=== PATIENT | male | born 1955 ===

== ENCOUNTER → 2018-07-29 | Outpatient (CLI) | payer OTHER ==
[2017-09-28 14:39] VITALS: BMI 26.0
[~2018-07-29] MED LIST: ASP300S PO; ASPI-757 PO; DIAZ-308 PO; DOCU-202 PO; HYDR-385 PO; IBUP-1671 PO; IBUP800T37 PO; KET10 PO; MOM PO; NAPR220C12 PO; OMEG1CAP39 PO; OXYC-865 PO; PER PO; POLY17PO25 PO; PRED20TA6 PO
--- NOTE | 2018-07-29 13:16 | RADIOLOGY IMAGING REPORT ---
FACILITY: [facility] PATIENT NAME: Jairo Gray : 1955 MR: [id number] V: [id number] EXAM DATE: ORDERING PHYSICIAN: SOPHIA GARRETT TECHNOLOGIST: [facility] Patient: Jairo Gray : 1955 Visit/Account:[id number] Date of Sevice: 07/29/2018 Exam type: ORBITS FOREIGN BODY 1 VIEW History: Pre-MRI screening Comparison: None. Findings: No radiopaque metallic foreign bodies project over the orbits IMPRESSION: 1. No radial opaque metallic foreign bodies project over the orbits Report Dictated By: Kisha Juarez MD at 07/29/2018 1:11 PM Report E-Signed By: Kisha Juarez MD at 07/29/2018 1:12 PM WSN:[email or web address]
--- NOTE | 2018-07-29 14:08 | RADIOLOGY IMAGING REPORT ---
[facility] PATIENT NAME: Jairo Gray : 1955 MR: [id number] V: [id number] EXAM DATE: [id number] ORDERING PHYSICIAN: SOPHIA GARRETT TECHNOLOGIST: Location: [facility] Patient: Jairo Gray : 1955 Visit/Account:[id number] Date of Sevice: 07/29/2018 EXAMINATION: MRI Lumbar spine without intravenous contrast HISTORY: Left hip pain. COMPARISON: CT abdomen and pelvis dated 09/27/2017. TECHNIQUE: Multi-planar, multi-sequence lumbar spine MRI was performed without intravenous contrast administration. FINDINGS: Alignment: Minimal retrolisthesis of L2 over L3. Vertebral marrow signal: Mild discogenic bone marrow edema at L1-L2 and L2-L3. Left L5 pars defect. Distal thoracic cord: Negative. Conus: negative, terminates at T12-L1 Cauda equina: Negative. Paravertebral soft tissues: Negative. Visualized abdominal and pelvic structures: Negative. Disc Spaces: Lower thoracic spine: Mild degenerative changes without stenosis. L1-2: Moderate disc height loss with circumferential disc bulge, anterior disc osteophytes, and mild facet hypertrophy. No significant spinal canal stenosis. Mild bilateral neural foraminal stenosis. L2-3: Minimal retrolisthesis. Mild disc height loss with circumferential disc bulge and facet hypert rophy. No significant spinal canal stenosis. Mild bilateral neural foraminal stenosis. L3-4: Minimal disc bulge with right foraminal annular fissure. Mild facet hypertrophy. No significa nt spinal canal stenosis. Mild bilateral neural foraminal stenosis. L4-5: Mild disc bulge and facet hypertrophy. Mild right lateral recess stenosis. Mild bilateral yeison ral foraminal stenosis, right worse than left. L5-S1: Mild disc height loss with circumferential disc bulge and facet hypertrophy. No significant s arnold canal stenosis. Mild right and moderate left neural foraminal stenosis. IMPRESSION: Multilevel degenerative disc disease and facet hypertrophy with minimal retrolisthesis of L2 over L3. Left L5 pars defect with no associated alignment abnormality. Report Dictated By: Samir Oliva MD at 07/29/2018 1:57 PM Report E-Signed By: Samir Oliva MD at 07/29/2018 2:04 PM WSN:[id number]
--- NOTE | 2018-07-29 14:37 | RADIOLOGY IMAGING REPORT ---
FACILITY: [facility] [place] PATIENT NAME: Jairo Gray : 1955 MR: [id number] V: [id number] EXAM DATE: ORDERING PHYSICIAN: SOPHIA GARRETT TECHNOLOGIST: Location: [facility] [place] Patient: Jairo Gray : 1955 Visit/Account:[id number] Date of Sevice: 07/29/2018 Exam type: LUMBAR SPINE 2 OR 3 VIEW History: Left sciatica, low back pain Comparison: None. Findings: There are five nonrib-bearing lumbar-type vertebral bodies present. There is no evidence of acute fr actures. There is a 2 mm retrolisthesis of L2 with respect L3. There is mild disc space narrowing a t L2-3 with small anterior osteophytes. There is moderate disc space narrowing at L1-2 with sclerosi s of the adjacent endplates and anterior osteophytes. Mild disc space narrowing is noted in the visu alized portion the lower thoracic spine. IMPRESSION: 1. Spondylotic changes lumbar spine as detailed above Report Dictated By: Kisha Juarez MD at 07/29/2018 2:30 PM Report E-Signed By: Kisha Juarez MD at 07/29/2018 2:31 PM WSN:[email or web address]
== END ==
LOC: MRI 00:49
PROVIDERS: ATTEND Family Medicine
DX: M47.896 Other spondylosis, lumbar region (principal); M51.36 Other intervertebral disc degeneration, lumbar region
CPT/HCPCS: 70030; 72100; 72148

== ENCOUNTER 2018-08-26 07:25 | Emergency (ER) | payer OTHER ==
[2017-09-28 14:39] VITALS: Wt 74.8 kg
--- NOTE | 2018-08-26 08:20 | ER Report ---
History and Physical Time Seen By MD: 08:19 Hx. of Stated Complaint: left finger thumb lips tongue numbness, with speech slurring HPI/ROS 63-year-old male with no known medical problems presented to the emergency department complaining of numbness and tingling in the left side of his face and his left hand that started approximately 30 minutes prior to coming to the emergency department and has since self resolved. is an or and works in the PACU. She notes that she noticed symptoms today as well. She also notes that his blood pressure has been elevated for the past 2 weeks. He normally does not have high blood pressure, and for the past 2 weeks his systolics have been anywhere from the 150s to 200. He has been battling left low back and hip pain. He recently had a steroid injection at [facility] for his diagnosis of sciatica. He denies a headache currently. He states that he had a headache shortly after the spinal manipulation, but the headache only lasted 3 hours. As far as his symptoms today he does not complain of any other focal neurologic symptoms other than the ones described. No recent trauma. No vision changes. No chest pain. Remainder of the 14 system rev: Yes Allergies: Coded Allergies: sumatriptan (Verified Allergy, Intermediate, THROAT FEELS LIKE ITS CLOSING, 08/26/18) hydromorphone (Verified Allergy, Unknown, 08/26/18) Home Meds Active Scripts Lisinopril (LISINOPRIL) 10 Mg Tablet, 10 MG PO QDAY for 14 Days, #14 TAB Prov:HODA OJEDA MD 08/26/18 Reported Medications Ibuprofen (MOTRIN IB) 200 Mg Tablet, 1 TAB PO QDAY 10/14/17 Reviewed Nurses Notes: Yes Old Medical Records Reviewed: Yes Hx Smoking: Yes (SMOKED FOR 6 YEARS) Smoking Status: Former Smoker Exposure to Second Hand Smoke?: No Hx Substance Use Disorder: No Hx Alcohol Use: Yes (sober) Constitutional Vital Sign - Last 24 Hours 08/26/18 08/26/18 08/26/18 08/26/18 07:25 07:28 07:30 07:31 Temp 98.1 Pulse 74 85 Resp 14 B/P (MAP) 177/104 (128) 151/109 (123) 151/109 Pulse Ox 96 O2 Delivery Room Air 08/26/18 08/26/18 08/26/1818 07:55 08:00 08:25 08:30 Pulse 75 74 Resp 12 24 B/P (MAP) 131/102 (112) 141/100 (114) Pulse Ox 93 96 O2 Delivery Room Air Room Air 08/26/18 08/26/18 08/26/18 08/26/18 08:55 09:00 09:05 09:30 Pulse 82 71 Resp 10 B/P (MAP) 158/104 (122) 154/106 (122) Pulse Ox 92 O2 Delivery Room Air 08/26/18 08/26/18 08/26/18 08/26/18 09:35 10:00 10:05 10:10 Pulse 75 67 65 Resp 16 10 11 B/P (MAP) 144/107 (119) Pulse Ox 96 96 96 O2 Delivery Room Air Room Air Room Air 08/26/18 08/26/18 08/26/18 08/26/18 11:38 11:40 11:45 12:15 Pulse 76 69 71 Resp 19 20 19 B/P (MAP) 132/101 (111) Pulse Ox 96 96 97 O2 Delivery Room Air Room Air Room Air 08/26/18 08/26/18 12:30 12:45 Pulse 69 Resp 42 B/P (MAP) 156/103 (120) Pulse Ox 96 O2 Delivery Room Air Physical Exam General Appearance: The patient is alert, has no immediate need for airway protection and no signs of toxicity. Eyes: Pupils equal and round no pallor or injection. ENT, Mouth: Mucous membranes are moist. Respiratory: There are no retractions, lungs are clear to auscultation. Cardiovascular: Regular rate and rhythm. Gastrointestinal: Abdomen is soft and non tender, no masses, bowel sounds normal. Neurological: strength sensation grossly in tact, CN II-XII in tact, normal gait. Skin: Warm and dry, no rashes. Musculoskeletal: TTP at the left buttocks c/w sciatica Neck: supple non tender. Extremities are nontender, nonswollen and have full range of motion. DIFFERENTIAL DIAGNOSIS: After history and physical exam differential diagnosis was considered for TIA, CVA, TX, trauma Medical Decision Making Data Points Result Diagram: 08/26/18 0733 08/26/18 0733 Laboratory Hematology Test 08/26/18 07:33 Red Blood Count 5.83 M/uL (4.00-5.60) Mean Corpuscular Volume 94.3 fL (80.0-96.0) Mean Corpuscular Hemoglobin 31.6 pg (26.0-33.0) Mean Corpuscular Hemoglobin Concent 33.6 g/dL (32.0-36.0) Red Cell Distribution Width 14.0 % (11.5-14.5) Mean Platelet Volume 8.7 fL (7.2-11.1) Neutrophils (%) (Auto) 66.7 % (39.4-72.5) Lymphocytes (%) (Auto) 23.4 % (17.6-49.6) Monocytes (%) (Auto) 8.0 % (4.1-12.4) Eosinophils (%) (Auto) 1.2 % (0.4-6.7) Basophils (%) (Auto) 0.7 % (0.3-1.4) Nucleated RBC Relative Count (auto) 0.2 /100WBC Neutrophils # (Auto) 5.6 K/uL (2.0-7.4) Lymphocytes # (Auto) 2.0 K/uL (1.3-3.6) Monocytes # (Auto) 0.7 K/uL (0.3-1.0) Eosinophils # (Auto) 0.1 K/uL (0.0-0.5) Basophils # (Auto) 0.1 K/uL (0.0-0.1) Nucleated RBC Absolute Count (auto) 0.02 K/uL Peripheral Blood Smear No Y/N Prothrombin Time 13.0 seconds (12.0-14.4) Prothromb Time International Ratio 0.99 Activated Partial Thromboplast Time 33 seconds (23-35) Sodium Level 141 mmol/L (137-145) Potassium Level 3.7 mmol/L (3.5-5.0) Chloride Level 101 mmol/L (98-107) Carbon Dioxide Level 27 mmol/L (22-30) Blood Urea Nitrogen 24 mg/dl (9-21) Creatinine 1.20 mg/dl (0.66-1.25) Glomerular Filtration Rate Calc > 60.0 Random Glucose 95 mg/dl (75-110) Calcium Level 9.4 mg/dl (8.4-10.2) Total Bilirubin 0.8 mg/dl (0.2-1.3) Aspartate Amino Transf (AST/SGOT) 29 U/L (0-35) Alanine Aminotransferase (ALT/SGPT) 39 U/L (0-56) Alkaline Phosphatase 44 U/L (0-126) Troponin I 0.019 ng/ml Total Protein 7.9 g/dl (6.3-8.2) Albumin 4.6 g/dl (3.5-5.0) Chemistry Test 08/26/18 07:33 White Blood Count 8.4 k/uL (4.5-11.0) Red Blood Count 5.83 M/uL (4.00-5.60) Hemoglobin 18.4 g/dL (14.0-18.0) Hematocrit 55.0 % (42.0-52.0) Mean Corpuscular Volume 94.3 fL (80.0-96.0) Mean Corpuscular Hemoglobin 31.6 pg (26.0-33.0) Mean Corpuscular Hemoglobin Concent 33.6 g/dL (32.0-36.0) Red Cell Distribution Width 14.0 % (11.5-14.5) Platelet Count 173 K/uL (150-450) Mean Platelet Volume 8.7 fL (7.2-11.1) Neutrophils (%) (Auto) 66.7 % (39.4-72.5) Lymphocytes (%) (Auto) 23.4 % (17.6-49.6) Monocytes (%) (Auto) 8.0 % (4.1-12.4) Eosinophils (%) (Auto) 1.2 % (0.4-6.7) Basophils (%) (Auto) 0.7 % (0.3-1.4) Nucleated RBC Relative Count (auto) 0.2 /100WBC Neutrophils # (Auto) 5.6 K/uL (2.0-7.4) Lymphocytes # (Auto) 2.0 K/uL (1.3-3.6) Monocytes # (Auto) 0.7 K/uL (0.3-1.0) Eosinophils # (Auto) 0.1 K/uL (0.0-0.5) Basophils # (Auto) 0.1 K/uL (0.0-0.1) Nucleated RBC Absolute Count (auto) 0.02 K/uL Peripheral Blood Smear No Y/N Prothrombin Time 13.0 seconds (12.0-14.4) Prothromb Time International Ratio 0.99 Activated Partial Thromboplast Time 33 seconds (23-35) Glomerular Filtration Rate Calc > 60.0 Calcium Level 9.4 mg/dl (8.4-10.2) Total Bilirubin 0.8 mg/dl (0.2-1.3) Aspartate Amino Transf (AST/SGOT) 29 U/L (0-35) Alanine Aminotransferase (ALT/SGPT) 39 U/L (0-56) Alkaline Phosphatase 44 U/L (0-126) Troponin I 0.019 ng/ml Total Protein 7.9 g/dl (6.3-8.2) Albumin 4.6 g/dl (3.5-5.0) Coagulation Test 08/26/18 07:33 Prothrombin Time 13.0 seconds Prothromb Time International Ratio 0.99 Activated Partial Thromboplast Time 33 seconds ED Course/Re-evaluation ED Course Symptoms are consistent with a TIA with all symptoms self resolved in approximately [address] head, MRI/MRA of the head, and MRA of the neck al l show no acute findings to explain symptoms. Could be also due to his HTN?? I gave him Lisinsopril to start for his HTN, and he will follow up with his PCM tomorrow. I will have him start taking a baby ASA daily. Decision to Disposition Date: Aug 26, 2018 Decision to Disposition Time: 14:35 Depart Departure Latest Vital Signs Vital Signs Date Time Temp Pulse Resp B/P (MAP) Pulse Ox O2 Delivery O2 Flow Rate FiO2 08/26/18 12:45 69 42 96 Room Air 08/26/18 12:30 156/103 (120) 08/26/18 07:31 98.1 Impression: Primary Impression: TIA (transient ischemic attack) Additional Impression: Elevated BP without diagnosis of hypertension Condition: Improved Disposition: HOME OR SELF-CARE Referrals: SOPHIA GARRETT DO (PCP) New Scripts Lisinopril (LISINOPRIL) 10 Mg Tablet 10 MG PO QDAY for 14 Days, #14 TAB Prov: HODA OJEDA MD 08/26/18 Patient Instructions: Transient Ischemic Attack (ED) Additional Instructions: Start taking 81 mg Aspirin daily Problem Qualifiers HODA OJEDA MD Aug 26, 2018 08:19
[2018-08-26 08:38] LABS: PLATELET COUNT, AUTOMATED 173 K/uL (150-450)
[2018-08-26 08:50] LABS: INR 0.99
--- NOTE | 2018-08-26 09:10 | EKG ---
FACILITY: [facility] PATIENT NAME: ONI AMATO : [id number] MR: [id number] V: [id number] EXAM DATE: ORDERING PHYSICIAN: HODA OJEDA TECHNOLOGIST: Test Reason : TIA Blood Pressure : / mmHG Vent. Rate : 070 BPM Atrial Rate : 070 BPM P-R Int : 080 ms QRS Dur : 092 ms QT Int : 382 ms P-R-T Axes : 000 021 069 degrees QTc Int : 412 ms Sinus rhythm with short WI Otherwise normal ECG When compared with ECG of 27-SEP-2017 18:06, premature ventricular complexes are no longer present WI interval has decreased Confirmed by ARUNA GUERRERO ([id number]) on 08/26/2018 6:07:41 PM Referred By: Confirmed By:ARUNA GUERRERO
--- NOTE | 2018-08-26 09:36 | RADIOLOGY IMAGING REPORT ---
[place] [facility] [place] NAME: Jairo Gray : 1955 MR: [id number] V: [id number] EXAM DATE: ORDERING PHYSICIAN: HODA OJEDA TECHNOLOGIST: Location: [facility] Patient: Jairo Gray : 1955 Visit/Account:[id number] Date of Sevice: 08/26/2018 EXAMINATION: Head CT without intravenous contrast HISTORY: Numbness tingling left arm and left face TECHNIQUE: Contiguous axial images were obtained from the skull base to the vertex without intraven ous contrast. Sagittal and coronal reformatted images are also submitted. Dose Lowering Technique One of the following dose optimization techniques was utilized in the performance of this exam: Autom ated exposure control; adjustment of the mA and/or kV according to the patient's size; or use of an i terative reconstruction technique. Specific details can be referenced in the facility's radiology C T exam operational policy. COMPARISON: None. FINDINGS: Brain volume: Mild diffuse cortical atrophy not out of proportion for patient's age Ventricles: Normal. Acute ischemic changes: None. Hemorrhage: None. Masses / edema: None. Suero-white: Negative. White matter: In the left frontal lobe white matter at the suero-white matter junction, there is a 5. 4 x 3.8 x 5 mm coarse calcifications with several small tiny peripheral calcifications. There is no significant mass effect. There is a subtle hypodensity in the adjacent left frontal white matter. Vessels: There are calcifications in the carotid siphons and vertebral arteries bilaterally Extra-axial: Negative. Calvarium / scalp: Negative. Skull base / visualized face: Negative. Visualized sinuses / orbits: Negative. IMPRESSION: There is mild diffuse cortical atrophy not out of proportion for patient's age In the left frontal white matter at the suero-white matter junction there is a 5.4 x 3.8 x 5 mm coarse calcification with several small tiny peripheral calcifications. There is subtle hypodensity in the adjacent left frontal white matter although no significant mass effect. Diagnostic considerations w ould include prior trauma, prior granulomatous infection, metabolic calcifications or less likely roel plastic calcification such as an oligodendroglioma due to the possibility of surrounding edema. No evidence of acute intracranial hemorrhage Calcifications in the carotid siphons and vertebral arteries bilaterally Report Dictated By: Kisha Juarez MD at 08/26/2018 9:15 AM Report E-Signed By: Kisha Juarez MD at 08/26/2018 9:31 AM WSN:[email or web address]
[2018-08-26] MEDS ORDERED: GADOBENATE 529MG/1ML 15ML VIAL IVP ONE (10:08)
[2018-08-26] MEDS ORDERED: NS(*) 0.9% 50 ML BAG 50 ML ONE (10:09)
[2018-08-26] MEDS ORDERED: DIAZEPAM 5 MG TAB PO ONE (10:10)
--- NOTE | 2018-08-26 12:06 | RADIOLOGY IMAGING REPORT ---
FACILITY: [facility] [place] PATIENT NAME: Jairo Gray : 1955 MR: [id number] V: [id number] EXAM DATE: ORDERING PHYSICIAN: HODA OJEDA TECHNOLOGIST: Location: [facility] [place] Patient: Jairo Gray : 1955 Visit/Account:[id number] Date of Sevice: 08/26/2018 Examination: MR brain without contrast History: TIA Comparison: Head CT August 26, 2018 Technique: Multiplane MR imaging was performed through the brain without contrast. Findings: Diffusion: None Ventricles: Normal Midline shift: None Extraaxial fluid: None. Midline craniocervical structures: Normal Parenchyma: Small focal left frontal lobe parenchymal calcification is present and better visualized by CT. Minimal white matter high signal adjacent to this finding, axial flair image 19 and 20. 1.6 cm transverse dimension curvilinear left inferior cerebellar cortical high signal, axial flair im age 6. Less than 10 scattered punctate white matter high signal foci. Vascular flow voids: Normal Orbits and paranasal sinuses: Normal. Other: Small bilateral mastoid effusions. Impression: 1. No acute intracranial abnormality. 2. 1.6 cm curvilinear left inferior cerebellar high signal without diffusion restriction is favored t o wrepresent the residua of a distant infarct. 3. Small left frontal lobe parenchymal calcification with minimal adjacent parenchymal high signal. T his calcification is better visualized on the comparison head CT. This finding is favored to represent the residua of prior ischemia/inflammation, hemorrhage or infect ion such as prior neurocysticercosis infection. This could alternatively represent a benign cavernous malformation however this is felt less likely given signal characteristics on MR. 4. Otherwise unremarkable brain MR. Report Dictated By: Taqueria Renteria MD at 08/26/2018 11:55 AM Report E-Signed By: Taqueria Renteria MD at 08/26/2018 12:02 PM WSN:[email or web address]
--- NOTE | 2018-08-26 12:11 | RADIOLOGY IMAGING REPORT ---
FACILITY: [facility] PATIENT NAME: Jairo Gray : 1955 MR: [id number] V: [id number] EXAM DATE: ORDERING PHYSICIAN: HODA OJEDA TECHNOLOGIST: Location: [facility] [place] Patient: Jairo Gray : 1955 Visit/Account:[id number] Date of Sevice: 08/26/2018 EXAMINATION: Brain MR angiogram HISTORY: TIA COMPARISON: None. TECHNIQUE: 6L-xydp-hy-flight angiography was performed through the brain with 3D reformations. FINDINGS: Internal carotids: Less intense flow related signal within the inferior basilar artery and left great er than right intracranial vertebral arteries is favored to be artifactual. Anterior/Posterior communicating arteries: Normal. Anterior cerebral arteries: Normal. Middle cerebral arteries: Normal. Posterior cerebral arteries: Normal. Vertebrobasilar: Normal. PICA / AICA / SCA / REAL ESTATE COORDINATOR: Normal. Non-angiographic Findings: None significant. IMPRESSION: Normal brain MR angiogram. Report Dictated By: Taqueria Renteria MD at 08/26/2018 11:46 AM Report E-Signed By: Taqueria Renteria MD at 08/26/2018 12:07 PM WSN:[email or web address]
--- NOTE | 2018-08-26 12:12 | RADIOLOGY IMAGING REPORT ---
FACILITY: [facility] - [place] [place] PATIENT NAME: Jairo Gray : 1955 MR: [id number] V: [id number] EXAM DATE: ORDERING PHYSICIAN: HODA OJEDA TECHNOLOGIST: Location: [facility] [place] Patient: Jairo Gray : 1955 Visit/Account:[id number] Date of Sevice: 08/26/2018 EXAMINATION: MRA of the neck without IV contrast MRA of the neck with IV contrast HISTORY: TIA COMPARISON: None TECHNIQUE: Pre and postcontrast neck MR angiographic acquisitions obtained with 3-D reformations. 15 mL gadobenate injected. Stenosis of the internal carotid arteries calculated using NASCET criteria. FINDINGS: Angiographic Findings: Aortic arch / great vessels: Conventional anatomy, normal. Right carotid vasculature: Normal. Left carotid vasculature: Normal. Vertebral arteries: Equivocal mild left vertebral artery origin stenosis, otherwise unremarkable. Visible intracranial vasculature: Normal. Non-angiographic Findings: None significant. IMPRESSION: 1. Equivocal mild left vertebral artery origin stenosis. 2. Otherwise normal neck arterial vasculature. Report Dictated By: Taqueria Renteria MD at 08/26/2018 12:02 PM Report E-Signed By: Taqueria Renteria MD at 08/26/2018 12:06 PM WSN:[email or web address]
[2018-08-26] MEDS ORDERED: KETOROLAC 30 MG/ML VIAL IVP ONE (14:35)
[2018-08-26] MEDS ORDERED: LISINOPRIL 10 MG TAB PO ONE (14:35)
[2018-08-26] MEDS ORDERED: LISI-362 PO (14:39)
[2018-08-26 15:01] VITALS: BP 157/119
== END 2018-08-26 15:11 | disposition home or self-care (01) ==
LOC: ER 08:21
DX: G45.9 Transient cerebral ischemic attack, unspecified (principal); R03.0 Elevated blood-pressure reading, without diagnosis of hypertension
CPT/HCPCS: 70450; 70544; 70549; 70551; 84153; 84443; 84484; 85025; 85610; 85730; 93005; 96374; 99285; A9577; J1885; J7050; 82040; 82247; 82310; 82374; 82435; 82465; 82565; 82947; 83718; 84075; 84132; 84155; 84295; 84450; 84460; 84478; 84520

== ENCOUNTER 2018-12-10 01:20 | Day surgery (SDC) | payer OTHER ==
[2017-09-28 14:39] VITALS: Ht 172.7 cm; Wt 73.0 kg
[~2018-12-10] VITALS: Ht 172.7 cm; Wt 73.0 kg
[~2018-12-10 01:20] MED LIST changes: +LISI-355 PO; +LISI-362 PO; +TRAM100T8 PO
[2018-12-10 13:33] VITALS: BP 134/91
[2018-12-10] MEDS ORDERED: OPHTHALMIC PROCEDURE 1 OS PRN (14:30)
[2018-12-10] MEDS ORDERED: OPHTHALMIC PROCEDURE 2 OS PRN ×2 (14:30)
[2018-12-10] MEDS ORDERED: LIDOCAINE/SOD BICARB 8.4% SYR ID ONE (14:50)
[2018-12-10] MEDS ORDERED: NORMOSOL R SOLN(*) 1000 ML BAG 1,000 ML IV PRN (14:50)
[2018-12-10] MEDS ORDERED: acetaZOLAMIDE 500 MG CAPCR PO ONE (15:30)
[2018-12-10 15:34] VITALS: BP 133/92
--- NOTE | 2018-12-10 16:48 | FOSTER LEFT EYE CATARACT ---
EVENT DATE: December 10, 2018 SURGEON: Be Dill MD ANESTHESIOLOGIST: Brian Husain MD ANESTHESIA: MAC PREOPERATIVE DIAGNOSIS Cataract, left eye. POSTOPERATIVE DIAGNOSIS Cataract, left eye. PROCEDURE Phacoemulsification of cataractous lens with implantation of an intraocular lens, left eye. DESCRIPTION OF PROCEDURE The risks, benefits, and alternatives were carefully discussed with the patient, and preoperative consent was obtained. The patient was brought to the operating room after receiving topical anesthetic. The patient was prepped and draped using sterile technique in the usual manner. A stab incision was made, and the chamber was inflated with preservative-free lidocaine. DuoVisc was injected to inflate the chamber. A 2.2 mm blade was used to enter the anterior chamber. Utrata forceps were used to tear a circular capsulorrhexis. BSS was used to hydrodissect the nucleus. Phaco tip was introduced, and the nucleus was chopped into four quadrants. Each quadrant was removed. The I/A tip was used to remove the cortex. The bag was inflated with ProVisc. The intraocular lens was injected into the capsular bag. The I/A tip was used to remove the ProVisc. The wound was found to be watertight. Vigamox, Nevanac, and Maxitrol ointment were placed in the patient's eye. The patient's eye was patched, and the patient was taken to the recovery room in stable condition. The patient was examined in the recovery room and found to be stable prior to release from the hospital. ANGIE
== END 2018-12-10 15:55 | disposition home or self-care (01) ==
LOC: OR 01:20
PROVIDERS: ATTEND Ophthalmology
DX: H25.813 Combined forms of age-related cataract, bilateral (principal)
CPT/HCPCS: 66982; V2632

== ENCOUNTER → 2019-03-30 | Outpatient (CLI) | payer OTHER ==
[2017-09-28 14:39] VITALS: BMI 26.0
[2019-03-30 12:06] LABS: PLATELET COUNT, AUTOMATED 255 K/uL (150-450)
== END ==
LOC: LAB 11:39
DX: M16.11 Unilateral primary osteoarthritis, right hip (principal)
CPT/HCPCS: 36415; 82310; 82374; 82435; 82565; 82947; 84132; 84295; 84520; 85025